=== PATIENT | female | born 1985 | race Two or more races ===

== ENCOUNTER 2017-07-01 15:48 | Emergency (ER) | payer OTHER ==
[2017-07-01 15:55] VITALS: RESP 16; TEMP 98.4
[2017-07-01] MEDS ORDERED: CEPHALEXIN 500 MG CAP PO ONE (16:32)
--- NOTE | 2017-07-01 16:40 | EDPHY ---
H & P Time Seen by Provider: 07/01/17 16:33 HPI/ROS: HPI: This is a 32-year-old female who presents with: Chief Complaint: Right hand redness Location: Right hand Quality: Redness Duration: 1 day Signs and Symptoms: + discharge, + redness, + warmth, no radiation, no weakness , no numbness Timing: gradual onset Severity: mild Context: Patient was in [place] last Friday working for the [employer]. She was setting up a metal drum and a piece of metal cut her right thumb. She went to the ER and 4 sutures placed. no xray taken. unsure if she broke her thumb. She returned home over the weekend to her one year old daughter and admits that she did not keep wound area immobilized per instruction. right hand dominant. LMP: 1 week ago. Modifying Factors: cleaning daily with mild soap and water Comment: ROS: Eyes: No blurred vision Respiratory: No shortness of breath, no cough Cardiovascular: No chest pain Gastrointestinal: No nausea, no vomiting no diarrhea Genitourinary: No dysuria Extremities: No myalgias Neurologic: No weakness, no numbness Skin: No rashes Hematologic: No bruising, no bleeding MEDICAL/SURGICAL HISTORY: Generally healthy. One child delivered vaginally. denies any surgical history. Social History: . Smoking Status: Never smoked Physical Exam: CONSTITUTIONAL: adult overweight middle-aged female, awake and alert, no obvious distress HEENT: Atraumatic and normocephalic, PERRL, EOMI. Tympanic membranes clear. Oropharynx clear, no exudate and moist pink mucosa. Airway patent. No lymphadenopathy. No meningismus. Cardiovascular: Normal S1/S2, regular rate, regular rhythm, without murmur rub or gallop. PULMONARY/CHEST: Symmetrical and nontender. Clear to auscultation bilaterally Good air movement. No accessory muscle usage. ABDOMEN: Soft, nondistended, nontender, no rebound, no guarding, no peritoneal signs, no masses or organomegaly. No CVAT. EXTREMITIES: 2/2 pulses, interdigital space between 1st and 2nd digits; well- approximated with 4 sutures; 0.5 inch, minimal surrounding erythema; no warmth; minimal serosanguineous drainage. No scaphoid tenderness. No fluctuance appreciated. right thumb has full range of flexion and extension. Light touch sensation intact. no clubbing, no cyanosis or edema. NEUROLOGICAL: no focal neuro deficits. GCS 15. SKIN: Warm and dry, no erythema. no rash. Good capillary refill. Constitutional: Initial Vital Signs Temperature (C) 36.9 C 07/01/17 15:52 Heart Rate 90 07/01/17 15:52 Respiratory Rate 16 07/01/17 15:52 Blood Pressure 135/79 H 07/01/17 15:52 O2 Sat (%) 98 07/01/17 15:52 O2 Delivery Mode Room Air Allergies/Adverse Reactions: No Known Allergies Allergy (Unverified 07/01/17 16:40) Home Medications: Medication Instructions Recorded Cephalexin [Keflex (*)] 500 mg PO TID #21 cap 07/01/17 Sulfamethox/Tmp 800/160 mg 1 tab PO BID #14 tab 07/01/17 [Bactrim Ds] Medical Decision Making ED Course/Re-evaluation: Right hand x-ray, local wound care, oral antibiotic No abscess appreciated Minimal amount of serosanguineous drainage with a scant amount of purulence; Given Keflex and Bactrim for MRSA prophylaxis place in velcro wrist splint to aide immobilization hand xray reviewed by myself and shows soft tissue swelling but no acute fracture or dislocation No signs of neurovascular compromise, tendon injury Differential Diagnosis: Differential diagnosis includes but is not limited to cellulitis, fracture, abscess, contusion, thumb sprain, nerve injury. - Data Points Medications Given: Discontinued Medications Cephalexin HCl (Keflex) 500 mg PO EDNOW ONE PRN Reason: Protocol Stop: 07/01/17 16:33 Last Admin: 07/01/17 16:52 Dose: 500 mg Trimethoprim/Sulfamethoxazole (Bactrim Ds) 1 ea PO EDNOW ONE PRN Reason: Protocol Stop: 07/01/17 16:46 Last Admin: 07/01/17 16:52 Dose: 1 ea Departure - Departure Disposition: Home, Routine, Self-Care Clinical Impression: Laceration of thumb with infection Qualifiers: Encounter type: subsequent encounter Laterality: right Qualified Code(s): S61.011D - Laceration without foreign body of right thumb without damage to nail , subsequent encounter Condition: Good Instructions: Cellulitis (ED) Additional Instructions: Will need wound check in the next 2-3 days. Wear splint until sutures are removed in 2-3 days. Take all antibiotics as directed. Referrals: NONE *PRIMARY CARE P,. [Primary Care Provider] - As per Instructions [facility],. [Clinic] - 2-3 days, if not improved Prescriptions: Cephalexin [Keflex (*)] 500 mg PO TID #21 cap Sulfamethox/Tmp 800/160 mg [Bactrim Ds] 1 tab PO BID #14 tab
[2017-07-01] MEDS ORDERED: SULFAMETHOX/TMP 800/160 MG 1 TAB PO ONE (16:45)
[2017-07-01 17:27] VITALS: BP 126/94; PULSE 80; O2SAT 93
== END 2017-07-01 17:26 | disposition home or self-care (01) ==
DX: S61.011A Laceration without foreign body of right thumb without damage to nail, initial encounter (principal); W45.8XXA Other foreign body or object entering through skin, initial encounter; Y99.0 Civilian activity done for income or pay; Y93.89 Activity, other specified
CPT/HCPCS: L3908